=== PATIENT | female | born 1970 | race Caucasian/White ===

== ENCOUNTER 2018-06-08 04:16 | Emergency (ER) | payer BC ==
[2018-06-08 04:28] VITALS: RESP 18; O2SAT 100
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
[2018-06-08 06:45] VITALS: BP 120/79; PULSE 68; TEMP 99
== END 2018-06-08 06:48 | disposition home or self-care (01) ==
LOC: C.ER 04:16
DX: T59.811A Toxic effect of smoke, accidental (unintentional), initial encounter (principal); J70.5 Respiratory conditions due to smoke inhalation; Y92.009 Unspecified place in unspecified non-institutional (private) residence as the place of occurrence of the external cause